=== PATIENT | male | born 1945 | race Hispanic/Latino ===

== ENCOUNTER 2018-10-28 14:34 | Inpatient (IN) | payer OTHER ==
[~2018-10-28 14:34] MED LIST: Calcium Chloride 1 GM/10 ML Abboject SYRINGE ONE; EPINEPHrine 1 MG/10 ML Abboject SYRINGE ONE
[2018-10-28 15:31] LABS: #Basophils 0.1 thou/uL (0.0-0.2); #Eosinphils 0.1 thou/uL (0.0-0.7); #Lymphocytes 1.7 thou/uL (1.20-3.40); #Monocytes 1.1 thou/uL (0.11-0.59); %Basophils 0.5 % (0.0-1.0); %Eosinophils 1.2 % (0.0-10.0); %Lymphocytes 15.6 % (21.0-51.0); %Monocytes 9.5 % (0.0-10.0); %Neutrophils 73.3 % (42.0-75.0); Hemoglobin 12.1 g/dL (14.0-18.0); Mean Corpuscular HGB CONC 32.5 g/dL (32.0-36.0); Mean Corpuscular Hemoglobin 27.6 pg (27.0-31.0); Mean Corpuscular Volume 85.1 fL (78.0-98.0); Mean Platelet Volume 8.8 fL (7.4-10.4); Platelet Count 189 thou/uL (130-400); RBC Distribution Width 13.6 % (11.5-14.5); Red Blood Cell (RBC) Count 4.37 mill/uL (4.70-6.10)
[2018-10-28 15:38] LABS: Prothrombin Time 77.4 SEC (12.0-14.7)
[2018-10-28 15:42] LABS: INR-International Normal Ratio 9.7
[2018-10-28 15:48] LABS: ALT (SGPT) 12 U/L (8-55); AST (SGOT) 22 U/L (5-34); Alkaline Phosphatase 115 U/L (40-150); Anion Gap 15 mmol/L (10-20); BUN (Urea Nitrogen) 19 mg/dL (8.4-25.7); Bilirubin, Total 0.9 mg/dL (0.2-1.2); Calc. Creatinine Clearance 0 mL/min (70-130); Calcium 8.3 mg/dL (7.8-10.44); Carbon Dioxide 22 mmol/L (23-31); Chloride 101 mmol/L (98-107); Estimated GFR-MDRD 71; Globulin 3.7 g/dL (2.4-3.5); Glucose 89 mg/dL (83-110); Potassium 4.2 mmol/L (3.5-5.1); Protein, Total 7.7 g/dL (5.8-8.1); Sodium 134 mmol/L (136-145)
[2018-10-28] MEDS ORDERED: cefTRIAXone\\ROCEPHIN 1 GM VIAL ONE (15:51)
[2018-10-28] MEDS ORDERED: Propofol 1,000 MG/100 ML VIAL IV PRN (16:40)
[2018-10-28] MEDS ORDERED: fentaNYL Citrate/PF 2,000 MCG in Sodium Chloride 0.9% 60 ML IV SCH (16:40)
[2018-10-28] MEDS ORDERED: Fentanyl BOLUS 250 ML IVPB PRN (16:40)
[2018-10-28] MEDS ORDERED: Morphine 2 MG/ML SYRINGE SLOW IVP PRN (16:40)
[2018-10-28] MEDS ORDERED: Lorazepam 2 MG/ML VIAL SLOW IVP PRN (16:40)
[2018-10-28] MEDS ORDERED: Propofol BOLUS 1,000 MG/100 ML VIAL IV PRN (16:40)
[2018-10-28] MEDS ORDERED: DISCONTINUE PREVIOUS NARCOTIC PAIN MEDICATIONS AND BENZODIAZEPINES FS SCH (16:40)
[2018-10-28 16:42] LABS: Actual Bicarbonate (HCO3a) 17.4 mEq/L (22-28); Analyzer IN Cardio ER; Base Excess (BEa) -10.7 mEq/L (-2.0 to +3.0); CO2 Tension 46.8 mmHg (35.0-45.0); Calcium, Ionized 1.12 mmol/L (1.12-1.30); Carboxyhemoglobin (COHb) 0.3 gm% (0.0-3.0); Hemoglobin (Hb) 13.7 g/dL (14.0-18.0); O2 Tension (PaO2) 67.1 mmHg (> 70.0); Potassium - ABG Lab 4.26 mmol/L (3.70-5.30)
[2018-10-28] MEDS ORDERED: Morphine 4 MG/ML VIAL SLOW IVP PRN (16:42)
[2018-10-28 16:44] LABS: Puncture Site LRA; pH, Arterial 7.19 (7.35-7.45)
[2018-10-28] MEDS ORDERED: Phytonadione 10 MG/ML AMP SLOW IVP SCH (16:45)
[2018-10-28] MEDS ORDERED: HUM PROTHROMBIN CPLX(PCC)4FACT 1,000 UNIT in Admixture Fee 1 EACH IV SCH (17:00)
[2018-10-28 17:16] LABS: Bilirubin Negative (Negative); Blood, Urine Large (Negative); Clarity CLEAR (Clear); Glucose, Urine (Dipstick) Negative (Negative); Leukocyte Negative (Negative); Nitrite Negative (Negative); Protein, Urine (Dipstick) > or equal to 300 mg/dL (Neg-Trace); Specific Gravity, Urine 1.012 (1.002-1.036)
[2018-10-28 17:18] LABS: Bacteria/HPF None Seen HPF (None Seen); Hyaline Casts/LPF 0-3 HYALINE CAST LPF (0-3 Hyaline); RBC/HPF 21-50 HPF (0-3); Squamous Epithelial None Seen HPF (0-3); WBC/HPF None Seen HPF (0-3)
--- NOTE | 2018-10-28 17:43 | RAD ---
PORTABLE CHEST: 10/28/18 HISTORY: Respiratory distress. Endotracheal and NG tubes appear to be in satisfactory position. Heart size is enlarged with postop s ternotomy changes. Pulmonary edema changes are present with increased perihilar and lung markings. IMPRESSION: 1. Cardiomegaly with some moderate pulmonary edema change. 2. Endotracheal tube in satisfactory position. NG tube is seen. The tip appears to be below the hemidiaphragm. POS: [facility]
[2018-10-28 17:51] LABS: Platelet Count 183 thou/uL (130-400)
[2018-10-28 17:57] LABS: Fibrinogen 437 mg/dL (253-463)
[2018-10-28 17:58] LABS: PTT 57.3 SEC (22.9-36.1); Prothrombin Time 61.7 SEC (12.0-14.7)
[2018-10-28 18:00] LABS: INR-International Normal Ratio 7.2
[2018-10-28 18:08] LABS: FSP-Qualitative ABNORMAL (Normal)
[2018-10-28 18:09] LABS: FSP-Semiquantitative >=40 & <80 mcg/mL (Less than 5)
[2018-10-28 18:12] LABS: D-Dimer Test 5.56 *mcg/mL (0.27-0.43)
[2018-10-28] MEDS ORDERED: Vecuronium 10 MG VIAL ONE (18:21)
[2018-10-28] MEDS ORDERED: Water For Inject, Bacteriostat 30 ML ONE (18:21)
[2018-10-28] MEDS ORDERED: Dextrose 5% in Water 1,000 ML IV PRN (18:38)
[2018-10-28] MEDS ORDERED: Dextrose 50% Abboject 50 ML SYRINGE SLOW IVP PRN (18:38)
[2018-10-28] MEDS ORDERED: HumaLOG 300 UNITS/3 ML VIAL SC PRN (18:38)
[2018-10-28] MEDS ORDERED: Propofol 1,000 MG/100 ML VIAL IV ONE (18:43)
[2018-10-28] MEDS ORDERED: Pantoprazole 40 MG VIAL IVP SCH ×2 (18:45→19:46)
[2018-10-28] MEDS ORDERED: PROTHROMBIN COMPLEX CONCENTRATE 1000 UNIT IV SCH (19:45)
[2018-10-28] MEDS ORDERED: Guaifenesin DM 100-10/5 ML UDCUP PO PRN (19:46)
[2018-10-28] MEDS ORDERED: Senokot S 8.6-50 MG TAB PO PRN (19:46)
[2018-10-28] MEDS ORDERED: Acetaminophen 325 MG TAB PO PRN (19:46)
[2018-10-28] MEDS ORDERED: Acetaminophen 650 MG Suppository PR PRN (19:46)
[2018-10-28] MEDS ORDERED: Ondansetron PF 4 MG/2 ML Vial IVP PRN (19:46)
[2018-10-28] MEDS ORDERED: Ondansetron ODT 4 MG TAB PO PRN (19:46)
--- NOTE | 2018-10-28 19:56 | HP ---
PRIMARY CARE PHYSICIAN: [facility]. The patient is an inmate from the [facility] unit. CHIEF COMPLAINT: Elevated INR and cardiac arrest. HISTORY OF PRESENT ILLNESS: This is a 73-year-old male with past medical history of atrial fibrillation, on Coumadin therapy, had an INR drawn that was 10 at present and so he was sent into the emergency room. The patient also has a history of congestive heart failure, coronary artery disease, hypertension, diabetes mellitus type 2, on insulin, and recent positive PPD. In the emergency room, the patient was without initial complaints but then stated he got some little bit shortness of breath on his trip to the emergency room and some chest tightness. After the labs were ordered, nurse came back to the room and found the patient was unconscious , was still breathing and had a pulse ox in the 90s per her report. When Dr. Norton got there, the patient became bradycardic and then became asystolic with loss of pulse. At that point, they did institute ACLS. The patient had epinephrine, calcium, fluids, and 2 units of O-negative blood. He was also intubated, did have return of spontaneous circulation with return of atrial fibrillation, which he has come in with. His blood pressure has been stable since then. He currently has been on a lot of sedation on the ventilator. A right groin central line was placed. Stanton catheter has been placed, which is draining back yaz blood. The patient also had some bleeding apparently out of his nares, but no blood back to the ET tube when it was placed. Dr. Clinton and Dr. Naranjo had been consulted from the emergency room. PAST MEDICAL HISTORY: All history taken from the chart secondary to the patient 's now unresponsive status. 1. Congestive heart failure, unknown type. 2. Atrial fibrillation, on chronic anticoagulation. 3. Diabetes mellitus type 2, insulin dependent. 4. Coronary artery disease. 5. Hypertension. 6. Diabetic neuropathy. 7. Previous urinary tract infection. 8. 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 PAST SURGICAL HISTORY: CABG. SOCIAL HISTORY: No tobacco, alcohol, or illicit drug use noted in the chart. FAMILY HISTORY: Unknown. ALLERGIES: NO KNOWN DRUG ALLERGIES. CURRENT MEDICATIONS: 1. Novolin N 20 units each morning and 10 units each night. 2. Novolin R 5 units subcutaneous twice a day along with a sliding scale. 3. Divalproex sodium 250 mg twice a day. 4. Amlodipine 10 mg daily. 5. Aspirin 81 mg daily. 6. Atorvastatin 80 mg daily each evening. 7. Carvedilol 6.25 mg twice a day. 8. Furosemide 40 mg twice a day. 9. Lisinopril 5 mg daily. 10. Omeprazole 20 mg daily. 11. Potassium chloride 10 mEq daily. 12. Presumed Coumadin, though is not listed on the medication list that I have here. REVIEW OF SYSTEMS: Unable to obtain secondary to the patient's intubated status. Per the ER report, the patient had a history of some chest pain and shortness of breath and the rest of the review of systems was negative in the emergency room. PHYSICAL EXAMINATION: VITAL SIGNS: Blood pressure 140/73, pulse 83, respirations 22, temperature 98.1 , and O2 saturation 95% on the ventilator. GENERAL: This is a well-developed, well-nourished, elderly male, who is sedated on the vent, but still a little bit agitated HEENT: The patient has vigorous response to touching his eyelids. Pupils are bilaterally equal and reactive to light. His nares have some fresh clotted blood. Oropharynx with ET tube in place, which he is chewing on occasionally. NECK: No masses or abnormalities. No thyromegaly. No evidence of trauma. HEART: Irregularly irregular rhythm. Normal rate. No murmurs, rubs, or gallops. LUNGS: Clear to auscultation bilaterally on the ventilator. No wheezes, crackles, or rhonchi. ABDOMEN: Obese, not apparently tender to palpation. No masses palpable. He does have a few small bruises on the anterior abdominal wall appearing to be from insulin injections. No hepatosplenomegaly or other masses. EXTREMITIES: The patient has bilateral lower extremity edema with chronic venous stasis changes to the skin and some bruising into the skin as well. No acute traumatic findings. He moved all extremities when agitated. SKIN: The patient has bruising and venous stasis changes to the skin of his extremities. No other rashes or lesions noted. NEUROLOGIC: The patient is currently sedated, moving all extremities. LABORATORY DATA: CBC with a white blood cell count of 11, hemoglobin 12.1, hematocrit 37.2, and platelet count 189. Coagulation profile; his initial INR was 9.7, down to 7.2 after Kcentra and vitamin K injections. Arterial blood gas on the ventilator shows a pH of 7.19, pCO2 of 46, PO2 of 67. Complete metabolic panel is notable for lactic acid initially 1.5 before the code. Sodium of 134, carbon dioxide of 22. The rest was normal. Brain natriuretic peptide was 342. Troponin was negative x1. Urinalysis showed large blood. No other infectious findings. DIAGNOSTIC DATA: Chest x-ray, I did review the initial chest x-ray, which was done after the intubation along with the radiologist's report. It shows some cardiomegaly with moderate pulmonary edema changes, and endotracheal tube in satisfactory position. Also, an NG tube appears in place. ASSESSMENT: 1. Acute cardiac arrest. The patient initially became unresponsive and bradycardic and then asystolic. Suspect there was hypoxic source to this given that after his resuscitation, he has come back with a strong heartbeat and good blood pressure. The patient is currently being admitted to the ICU, Dr. Naranjo and Dr. Clinton had been consulted. 2. Acute respiratory failure with hypoxia. The patient is currently on the ventilator and is saturating well. 3. Acute congestive heart failure. The patient has evidence on the x-ray of acute pulmonary edema and congestive changes. Also, has lower extremity edema. Uncertain what his baseline is. The patient will need an echocardiogram in the hospital and should his blood pressure remain stable and not have any evidence of bleeding, he probably will need some diuresis eventually as well. 4. Coagulopathy, likely from Coumadin, received vitamin K and Kcentra in the emergency room. We will continue to follow INRs and watch for evidence of bleeding. We will check serial hemoglobin and hematocrit overnight. 5. Traumatic Stanton. The patient is bleeding significantly and his Stanton will need urology evaluate him when he comes to and will also possibly need to lavage his bladder. 6. Diabetes mellitus type 2, insulin dependent. We will put the patient on fingerstick blood sugars q.a.c. and at bedtime and will give him moderate insulin sliding scale. We will hold off on his basal insulin for now until we get a feel for what he is at and also until he starts to take some sort of diet. 7. Coronary artery disease. 8. Hypertension. We will need to resume the patient's home antihypertensives if his blood pressure remains elevated and he has no further evidence of bleeding. 9. Gastrointestinal prophylaxis, put the patient on Protonix IV daily. CODE STATUS: The patient is a full code. Job ID: [id number] MTDD
[2018-10-28 20:03] LABS: Actual Bicarbonate (HCO3a) 19.3 mEq/L (22-28); Base Excess (BEa) -6.8 mEq/L (-2.0 to +3.0); CO2 Tension 40.3 mmHg (35.0-45.0); Calcium, Ionized 1.09 mmol/L (1.12-1.30); Carboxyhemoglobin (COHb) 0.7 gm% (0.0-3.0); Hemoglobin (Hb) 12.7 g/dL (14.0-18.0); O2 Tension (PaO2) 70.3 mmHg (> 70.0)
[2018-10-28 20:09] LABS: ALV-art Gradient 271.475 (0-20); Puncture Site RBA
[2018-10-28] MEDS ORDERED: Amiodarone HCl 150 MG in Dextrose 5% in Water 100 ML IVPB SCH (20:15)
[2018-10-28 20:21] VITALS: BMI 30.9
--- NOTE | 2018-10-28 20:22 | RAD ---
PORTABLE AP CHEST X-RAY 10/28/18 HISTORY: Post femoral central line insertion, intubation. COMPARISON: 10/28/18 at 1515 hours. FINDINGS: Endotracheal tube and nasogastric tube remain in place. Tip of the nasogastric tube overlies the elio on of the fundus of the stomach with most proximal side hole overlying the region of the GE junction and nasogastric tube should be mildly advanced. Pacing device again overlies the right chest. Median sternotomy wires are present. The cardiac silhouette within normal limits. There is increased interst itial and alveolar opacities within the lungs bilaterally, greatest in the perihilar regions and on t he right which have increased from the prior exam. Pulmonary vasculature is increased. IMPRESSION: 1. Findings likely related to worsening asymmetric pulmonary edema. 2. Lines and tubes unchanged in position. Nasogastric tube should be mildly advanced as the mos t proximal side hole overlies the GE junction. AP VIEW ABDOMEN: The pelvis is excluded from view. There is a central venous catheter overlying the right aspect of th e sacrum with tip overlying the L5-S1 level. Vascular stent overlies the region of the left common il iac artery. Vascular calcifications in the abdominal aorta and the right common iliac artery. Degener ative changes seen in the spine. Bowel gas pattern is nonspecific. Mild gaseous distention of the loo ps of bowel. Nasogastric tube is in place as described above on report of the chest x-ray with most p roximal side hole overlying the region of the GE junction. IMPRESSION: 1. Central venous catheter overlying the right aspect of the pelvis with tip overlying the right sacroiliac joint. 2. Vascular stent left common iliac artery with vascular calcifications present. 3. Nasogastric tube in place with proximal side hole overlying the GE junction. Nasogastric tube should be mildly advanced. POS: [facility]
[2018-10-28] MEDS ORDERED: Lorazepam 2 MG/ML VIAL ONE (20:47)
[2018-10-28] MEDS: Amiodarone HCl 450 MG in Dextrose 5% in Water 250 ML IVPB SCH (20:54)
[2018-10-28] MEDS ORDERED: Sodium Chloride 0.9% 1,000 ML IV SCH (21:00)
[2018-10-28] MEDS ORDERED: Norepinephrine 8 MG/0.9% NS 250 ML IVPB SCH (22:45)
[2018-10-28] MEDS: Lorazepam 2 MG/ML VIAL SLOW IVP PRN (22:55)
--- NOTE | 2018-10-28 23:04 | CON ---
DATE OF CONSULTATION: 10/28/2018 REASON FOR CONSULTATION: Cardiac arrest. HISTORY: Mr. Triana is a 73-year-old white gentleman, who is an inmate who comes in as he had an INR of 10 earlier today. He was sent over here just for the INR. While blood tests were getting drawn, he suddenly became unresponsive, became bradycardic, and eventually went into asystole. ACLS was started, chest compressions were performed, and had one dose of epinephrine. He quickly regained spontaneous circulation and was back in atrial fibrillation which he is chronically in. He was intubated at the time sedated and Cardiology has been consulted for further evaluation and care. Chest x-ray looks like bilateral pulmonary edema. PAST MEDICAL HISTORY: 1. History of CHF, unknown systolic versus diastolic. 2. Chronic atrial fibrillation, on chronic anticoagulation with Coumadin. 3. Chronic anticoagulation with Coumadin. 4. Type 2 diabetes. 5. Coronary artery disease, status post CABG. 6. Hypertension. 7. Diabetic neuropathy. 8. History of UTIs. PAST SURGICAL HISTORY: CABG. SOCIAL HISTORY: No alcohol, tobacco, or drugs per chart review. FAMILY HISTORY: Unknown. REVIEW OF SYSTEMS: Unobtainable as patient is sedated and intubated. ALLERGIES: NO KNOWN DRUG ALLERGIES. OUTPATIENT MEDICATIONS: 1. Novolin. 2. Divalproex. 3. Amlodipine 10 mg a day. 4. Aspirin 81 a day. 5. Atorvastatin 80 mg a day. 6. Carvedilol 6.25 b.i.d. 7. Furosemide 40 mg b.i.d. 8. Lisinopril 5 mg a day. 9. Omeprazole 20 mg a day. 10. Potassium chloride 10 mEq a day. 11. Coumadin. PHYSICAL EXAMINATION: VITAL SIGNS: Blood pressure 89/62, heart rate 120, respiratory rate 28 on the vent, temperature 98.8, and sat 99% on FiO2. GENERAL: Sedated and intubated. LUNGS: Have coarse breath sounds anteriorly. CARDIOVASCULAR: Tachycardic, heart rate in the 120s, regular. ABDOMEN: Soft. EXTREMITIES: 1+ edema. SKIN: Warm and dry. LABORATORY DATA: Laboratory work was reviewed. CBC with white count of 11, hemoglobin of 12, hematocrit 37, and platelet count of 189. Coags with initial INR 9.7, down to 7.2. ABG reviewed. Chemistries were reviewed, pretty much unremarkable. BNP was 342. Troponin was negative x1. UA; large amount of blood, 21 to 50 red blood cells. His chest x-rays were reviewed. ASSESSMENT AND PLAN: 1. Asystolic cardiac arrest. 2. Supratherapeutic INR. 3. Chronic anticoagulation with Coumadin. 4. Chronic atrial fibrillation. 5. Currently in atrial fibrillation with rapid ventricular response. 6. Hematuria. 7. Acute hypoxic respiratory insufficiency. PLAN: 1. We will reverse his coagulopathy with fresh frozen plasma as he continues to bleed from his bladder. He does have some clots there, so he is already starting to form clot. We would continue supportive care for now. If he were to become hypotensive, we will start Levophed for now. We will get an echocardiogram to see what his LV function is doing. 2. We will defer use of fluids, however, if he starts bleeding, I would give him fluids profusely, try to keep his blood pressure up and eventually blood products. 3. INR is already coming down. Should get much better after FFP is given. 4. Continue amiodarone drip for rate control of his atrial fibrillation, however, may be reactive to his current state. 5. We will follow. Over 45 minutes were spent at bedside for critical care on this patient. Job ID: [id number]
[2018-10-28 23:31] LABS: Medtox Reader # READER 4
[2018-10-28 23:32] LABS: Amphetamine Not Detected (NotDetected); Barbiturates Screen Not Detected (NotDetected); Benzodiazepine Screen Not Detected (NotDetected); Cocaine Metabolite Screen Not Detected (NotDetected); Medtox Control Line Valid? VALID (VALID); Methadone Not Detected (NotDetected); Methamphetamine Not Detected (NotDetected); Opiate Screen Not Detected (NotDetected); Oxycodone Screen Not Detected (NotDetected); Phencyclidine (PCP) Not Detected (NotDetected); THC/Cannabinoid Screen Not Detected (NotDetected); Tricyclic Screen Not Detected (NotDetected)
[2018-10-29] MEDS: Lorazepam 2 MG/ML VIAL SLOW IVP PRN ×6 (00:04→08:13)
[2018-10-29] MEDS ORDERED: EPINEPHrine 1 MG/ML AMP ONE (00:23)
[2018-10-29] MEDS ORDERED: EPINEPHrine 1 MG/10 ML Abboject SYRINGE ONE (00:25)
--- NOTE | 2018-10-29 00:39 | CON ---
DATE OF CONSULTATION: 10/28/2018 HISTORY OF PRESENT ILLNESS: This is a 73-year-old white male who was brought in from the ER up to the ICU, he came in apparently coding in the ER. He has history of atrial fibrillation and coronary artery disease, has been on Coumadin. His INR is greatly elevated, it was 9.7 and 7.2 now. His hemoglobin was 12.1, that was at 3:00 this afternoon. He has not had one rechecked at this point, I do not believe, although I do believe he may have received a couple units of blood downstairs, his platelet count was normal. His creatinine was normal. He has not had abdominal CT scan. On talking with his by phone one of our nurses in regards that we were able to find that he had had a TURP done 3 years ago in [place] at [facility]. He has no known history of prostate cancer. From the admitting doctor reports that he has had some urinary tract infection. His urinalysis showed just 21 to 50 red cells, no white cells when he was brought in. Talking with the nurses who had received him from the ER, they said when his catheter was first placed which I believe was a 16-Hungarian, his urine was clear, and then it became bloody. He got upstairs. The catheter was not draining. They could irrigate it. They did the bladder ultrasound. He had 800 mL in the bladder. Urology consult was called. He is currently intubated. I went ahead and removed the indwelling catheter, sterilely prepped him with Betadine, placed a 22-Hungarian three-way and placed 30 mL in the balloon. We then hand irrigated with probably 2-1/2 to 3 L of sterile water and sterile saline getting out a fair amount of clot, never could get him clear, but I think with his INR, we are unlikely to get him clear, but we removed enough clot that we could start continuous bladder irrigation and watch it for few minutes and it seems to be draining adequately, though the urine is still bloody. He has received some vitamin K and he is also now receiving some FFP. Hopefully as his coags correct, his urine will clear. At this point, there is really not any reason to consider taking him to the OR unless he does not clear or we cannot get the clots out after the coags correct. I have asked that the urine culture be set up, although it does not appear based on his initial UA here that he has a urinary tract infection. On his physical exam, his bladder was distended. After getting the clots out, it was not distended. He is not circumcised, but there is no phimosis or lesions. Testicles descended without mass or tenderness. Rectal exam was not done at this visit. We will see about the CT scan based on what happens in terms of the urine after the coags correct. Looking at him from historical standpoint, it does not appear that he has actually been in this hospital before. So, I have no other history on him related to the prior scans with things of that nature. PAST SURGICAL HISTORY: He has history of TURP and has a history of coronary artery bypass. PAST MEDICAL HISTORY: Heart failure, atrial fibrillation, diabetes, coronary artery disease, hypertension, diabetic neuropathy, and apparently had a positive tuberculin skin test, but he has not had TB. He is not currently smoking or drinking. IMPRESSION: Gross hematuria, which is probably prostatic, it is probably related to the anticoagulated state. He is having the coags corrected. We irrigated out a fair amount of clot from the bladder. We started bladder irrigation with a large caliber Stanton, which seems to be working well. The nurses can hand irrigated if it is not draining adequately and we will see what he do as his coags correct. Job ID: [id number]
[2018-10-29] MEDS: EPINEPHrine 4 MG in Dextrose 5% in Water 250 ML IV SCH ×5 (00:40→20:22)
[2018-10-29] MEDS ORDERED: Sodium Chloride 0.9% 1,000 ML IV SCH (03:15)
[2018-10-29] MEDS ORDERED: EPINEPHrine 1 MG/10 ML Abboject SYRINGE IVP SCH (03:15)
[2018-10-29 03:56] LABS: #Lymphocytes 1.1 thou/uL (1.20-3.40); %Basophils 0.1 % (0.0-1.0); %Eosinophils 0.2 % (0.0-10.0); %Lymphocytes 5.8 % (21.0-51.0); %Monocytes 10.8 % (0.0-10.0); %Neutrophils 83.1 % (42.0-75.0); Hemoglobin 9.2 g/dL (14.0-18.0); Mean Corpuscular HGB CONC 32.9 g/dL (32.0-36.0); Mean Corpuscular Hemoglobin 28.1 pg (27.0-31.0); Mean Corpuscular Volume 85.3 fL (78.0-98.0); Mean Platelet Volume 9.2 fL (7.4-10.4); Platelet Count 179 thou/uL (130-400); RBC Distribution Width 13.8 % (11.5-14.5); Red Blood Cell (RBC) Count 3.27 mill/uL (4.70-6.10)
[2018-10-29 04:01] LABS: INR-International Normal Ratio 1.4; Prothrombin Time 17.6 SEC (12.0-14.7)
[2018-10-29 04:25] LABS: Anion Gap 18 mmol/L (10-20); BUN (Urea Nitrogen) 27 mg/dL (8.4-25.7); Calc. Creatinine Clearance 52 mL/min (70-130); Calcium 7.4 mg/dL (7.8-10.44); Carbon Dioxide 20 mmol/L (23-31); Chloride 101 mmol/L (98-107); Estimated GFR-MDRD 38; Glucose 198 mg/dL (83-110); Potassium 5.1 mmol/L (3.5-5.1); Sodium 134 mmol/L (136-145)
--- NOTE | 2018-10-29 04:59 | CON ---
DATE OF CONSULTATION: 10/29/2018 HISTORY OF PRESENT ILLNESS: I was consulted to see Mr. Triana in the emergency department after a cardiac arrest. Apparently, he had presented with some hemoptysis and nonspecific complaints. He had a sudden bradycardic arrest with no pulse. He was not reportedly in respiratory distress prior to his arrest. He was resuscitated. PAST MEDICAL HISTORY: According to [facility] records includes: 1. Congestive heart failure. 2. History of coronary artery disease. 3. History of coronary artery bypass grafting. 4. History of atrial fibrillation, on Coumadin. 5. History of diabetes. 6. History of diabetic neuropathy. 7. Hypertension. SOCIAL HISTORY: He is a nonsmoker and nondrinker. ALLERGIES: HE HAS NO KNOWN DRUG ALLERGIES. MEDICATIONS: Prior to admission, he was on: 1. Depakote. 2. Novolin. 3. Amlodipine. 4. Aspirin. 5. Atorvastatin. 6. Coreg. 7. Lasix. 8. Lisinopril. 9. Omeprazole. 10. Potassium. 11. Warfarin. PHYSICAL EXAMINATION: Blood pressure in the emergency room was in the 90s, heart rate was 120, appeared to be in atrial fibrillation. He is mechanically ventilated. He was biting on the endotracheal tube. IV fluids were not running at that time, so we started some IV fluid. I recommended paralysis and sedation. He is given 2 Ativan, 10 of vecuronium and we are able to affectively ventilate him. HEENT: Pupils are sluggish. Sclerae anicteric. NECK: Without lymphadenopathy. LUNGS: Remarkable for coarse equal breath sounds. HEART: Regular rhythm. ABDOMEN: Soft and nontender. EXTREMITIES: Without asymmetry. Has stasis changes and 1+ pretibial pitting. NEURO: Could not be assessed. IMAGING DATA: Chest radiograph suggestive of pulmonary edema. He had diffuse infiltrates and probably bilateral pleural effusions, but it was an AP portable film. LABORATORY DATA: White count of 11, hemoglobin 12.1, platelets 189. His INR was 9.7 at 15:16. It was repeated at 17:38, it was still 7.2. Apparently, he did not get the Kcentra because I was told he was scheduled to get in the emergency department until he arrived in the ICU. Sodium 134, potassium 4.2, chloride 101, bicarb 22, BUN 19, creatinine 1.02. PH when he arrived in the ICU 7.3, CO2 40, PO2 70 after we made some ventilator changes in the emergency department. I was seeing another patient this evening, and he started become hypotensive. He dropped his pressure into the 40s, which I suspect is what he did in the emergency department prior to his arrest. We started him on epinephrine drip, which has stabilized that issue at this point in time. Stat echocardiogram was done. I was told his echo looked bad, but not told of any effusion or tamponade. IMPRESSION: 1. Status post cardiac arrest in the emergency department. 2. Over anticoagulation. PLAN: Once we are sure he is hemodynamically stable, we will take him down for a CT of his head to rule out a bleed and a noncontrast CT of his chest to see how much of his radiographic abnormalities are related to effusions and how much are actually pulmonary infiltrates. Critical care time being seen him last night and early this morning total of 50 minutes. Job ID: [id number] MTDD
[2018-10-29] MEDS: Amiodarone HCl 450 MG in Dextrose 5% in Water 250 ML IVPB SCH ×2 (05:07→20:23)
[2018-10-29 06:53] LABS: Actual Bicarbonate (HCO3a) 14.8 mEq/L (22-28); Base Excess (BEa) -14.3 mEq/L (-2.0 to +3.0); Calcium, Ionized 1.12 mmol/L (1.12-1.30); Carboxyhemoglobin (COHb) 0.8 gm% (0.0-3.0); Hemoglobin (Hb) 10.5 g/dL (14.0-18.0); Potassium - ABG Lab 5.31 mmol/L (3.70-5.30)
[2018-10-29 06:55] LABS: pH, Arterial 7.11 (7.35-7.45)
[2018-10-29 06:56] LABS: O2 Tension (PaO2) 55.2 mmHg (> 70.0); Puncture Site LRA
[2018-10-29] MEDS ORDERED: Pantoprazole 40 MG VIAL IVP SCH ×2 (09:00)
--- NOTE | 2018-10-29 09:07 | RAD ---
PORTABLE CHEST: Date: 10/28/18 Time: 1517 hours HISTORY: ccu follow up Comparison made to the exam at 1505 hours. FINDINGS/IMPRESSION: ET tube has been removed. The cardiomegaly and vascular congestion remains. Bilateral effusions. Left basilar atelectasis and/or infiltrate is more prominent. POS: [facility]
[2018-10-29] MEDS ORDERED: Insulin Regular 300 UNITS/3 ML VIAL IVP SCH (09:45)
[2018-10-29] MEDS ORDERED: Vecuronium Bromide 20 MG VIAL IV PRN (09:52)
[2018-10-29] MEDS ORDERED: Vecuronium 10 MG VIAL ONE (09:52)
--- NOTE | 2018-10-29 09:57 | PDOC.PN ---
- Subjective Encounter Start Date: 10/29/18 Encounter Start Time: 11:40 Subjective: Patient with agitation, seizure activity, desating on vent this -: AM, better after paralysis and seizure meds. EEG and CT brain -: planned for today. - Objective Resuscitation Status - Order Detail: 10/28/18 18:19 Resuscitation Status Routine Resuscitation Status: FULL: Full Resuscitation MAR Reviewed: Yes Vital Signs & Weight: Vital Signs (12 hours) Temp Pulse Resp BP 10/29/18 08:00 102.4 F H 30 H 10/29/18 06:36 112 H 103/36 L 10/29/18 06:00 22 H 10/29/18 05:00 98.8 F 10/29/18 04:00 100.8 F H 26 H 10/29/18 02:00 24 H 10/29/18 01:16 98.6 F 10/29/18 00:56 98.8 F 10/29/18 00:33 98.8 F 10/29/18 00:17 98.1 F 10/28/18 23:56 98.0 F Weight Weight 221 lb 9.033 oz Most Recent Monitor Data Heart Rate from ECG 105 NIBP 113/49 NIBP BP-Mean 70 Respiration from ECG 32 SpO2 99 I&O: 10/28/18 10/29/18 10/30/18 06:59 06:59 06:59 Intake Total 1982 50 Output Total 415 Balance 1567 50 Result Diagrams: 10/29/18 09:25 10/29/18 03:10 Phys Exam - Physical Examination paralyzed, sedated on vent HEENT: moist MMs ET tube in place, no active bleeding from nostrils Respiratory: no wheezing, no rales, no rhonchi Cardiovascular: irregular tachycardic Gastrointestinal: soft decreased bowel sounds Musculoskeletal: edema present Deviation from normal: sedated, unresponsive on the vent Dx/Plan (1) Cardiac arrest due to other underlying condition Code(s): I46.8 - CARDIAC ARREST DUE TO OTHER UNDERLYING CONDITION Status: Acute Comment: ROSC in ER after 1 Epi and chest compressions (2) Acute respiratory failure with hypoxia Code(s): J96.01 - ACUTE RESPIRATORY FAILURE WITH HYPOXIA Status: Acute Comment: on the ventilator, CXR with pulmonary edema (3) Acute on chronic systolic (congestive) heart failure Code(s): I50.23 - ACUTE ON CHRONIC SYSTOLIC (CONGESTIVE) HEART FAILURE Status : Acute Comment: EF 35-40% (4) Chronic atrial fibrillation Code(s): I48.2 - CHRONIC ATRIAL FIBRILLATION Status: Chronic (5) Coagulopathy Status: Resolved Comment: supratherapeutic INR, now resolved with FFP (6) Hematuria Code(s): R31.9 - HEMATURIA, UNSPECIFIED Status: Acute Comment: seen by Dr. Rodriguez, bladder lavaged (7) Diabetes mellitus type 2, insulin dependent Code(s): E11.9 - TYPE 2 DIABETES MELLITUS WITHOUT COMPLICATIONS; Z79.4 - PRODUCT INFO SPECIALIST (CURRENT) USE OF INSULIN Status: Chronic (8) CAD (coronary artery disease) Code(s): I25.10 - ATHSCL HEART DISEASE OF [place] CORONARY ARTERY W/O ANG PCTRS Status: Chronic (9) HTN (hypertension) Code(s): I10 - ESSENTIAL (PRIMARY) HYPERTENSION Status: Chronic Qualifiers: Hypertension type: essential hypertension Qualified Code(s): I10 - Essential (primary) hypertension (10) Diabetic neuropathy Code(s): E11.40 - TYPE 2 DIABETES MELLITUS WITH DIABETIC NEUROPATHY, UNSP Status: Chronic (11) Seizure Code(s): R56.9 - UNSPECIFIED CONVULSIONS Status: Acute Comment: getting fosphenytoin - Plan cont current plan of care, nunez catheter, respiratory therapy CT scan this AM * . - Discharge Day Encounter end time: 11:55
[2018-10-29] MEDS ORDERED: Vecuronium 10 MG VIAL IV PRN (10:01)
[2018-10-29] MEDS: HumaLOG 300 UNITS/3 ML VIAL SC PRN ×2 (11:21→16:43)
--- NOTE | 2018-10-29 11:45 | PDOC.CTH ---
Cardiology Progress Note - Subjective Remains sedated and intubated. He has been having more myoclonic jerking suggestive of status versus anoxic brain injury. - Objective Vital Signs Temp Pulse Resp BP Pulse Ox 10/29/18 10:49 110 H 110/48 L 10/29/18 10:00 28 H 10/29/18 09:00 99.7 F H 10/29/18 08:00 102.4 F H 30 H 98 10/29/18 06:36 112 H 103/36 L 10/29/18 06:00 22 H 10/29/18 05:00 98.8 F 10/29/18 04:00 100.8 F H 26 H 10/29/18 02:00 24 H 10/29/18 01:16 98.6 F 10/29/18 00:56 98.8 F 10/29/18 00:33 98.8 F 10/29/18 00:17 98.1 F 10/28/18 23:56 98.0 F Weight 221 lb 9.033 oz 10/28/18 10/29/18 10/30/18 06:59 06:59 06:59 Intake Total 1982 50 Output Total 415 Balance 1567 50 - Physical Examination General/Neuro: other: (Sedated intubated. ) Neck: no JVD present Lungs: CTA Heart: other: (Irreg irreg. HR 120's .) Abdomen: soft Extremities: other: (no edema.) - Telemetry Telemetry Rhythm: Afib HR 120's. - Labs Result Diagrams: 10/29/18 09:25 10/29/18 03:10 Troponin/CKMB Troponin I 0.011 ng/mL (< 0.028) 10/28/18 15:16 - Assessment/Plan 1. Supratherapeutic INR, resolved. INR 1.7 now. 2. S/P Asystolic cardiac arrest 3. Myoclonic jerking, concern for brain bleed causing seizures versus severe anoxic brain injury. 4. Chronic afib, now in RVR 5. Hematuria. 6. Acute blood loss anemia. 7. Ischemic CM EF at 35-40% 8. Cardiogenic shock PLAN: - Poor prognosis. - CT head/chest/abd/pelvis planned. - Continue pressor support. - Permissive tachycardia for now as he may need this HR. - Severely ill and would not be unexpected. - Continue to hold all anticoagulants and anti platelets. - 30 minutes critical care time.
[2018-10-29] MEDS: Vecuronium 10 MG VIAL IV PRN ×3 (11:49→19:13)
--- NOTE | 2018-10-29 13:27 | PRG ---
DATE OF SERVICE: 10/29/2018 SUBJECTIVE: Storm Triana continues to have myoclonic jerking and may have had 1 episode of generalized seizure this morning, for which Dilantin was given. OBJECTIVE: VITAL SIGNS: His hemodynamics remarkable for a blood pressure 115/60, heart rate of 109, respiratory rate is 28. He is afebrile. LUNGS: Marked for distant breath sounds. HEART: Regular rhythm. ABDOMEN: Soft. LABORATORY DATA: White count 18, hemoglobin 9.2, platelets 179,000. Sodium 134, potassium 5.1, chloride 101, bicarb 20, BUN 27, creatinine 1.7. PH 7.11, CO2 48, PO2 55. IMPRESSION: 1. Respiratory failure after cardiac arrest. 2. Hypoperfusion brain injury, most likely an EEG has been ordered. 3. Diabetes. 4. History of hypertension. 5. History of chronic cardiomyopathy with history of coronary artery bypass grafting in the past. 6. Pulmonary edema. 7. Probable obesity hypoventilation, it is undiagnosed. 8. Atrial fibrillation, that is chronic. 9. Status post supratherapeutic INR. He remained stable throughout the morning. We will consider a head CT to rule out spontaneous bleed when his INR was over 9. 10. Also if CT of his abdomen and pelvis at the request Urology since he is having gross hematuria, I do not anticipate that he will survive this. CRITICAL CARE TIME: 30 minutes. Job ID: [id number]
--- NOTE | 2018-10-29 15:25 | CT ---
CT BRAIN WITHOUT CONTRAST: HISTORY: Seizures. Respiratory failure. FINDINGS: No evidence of infarct, hemorrhage, midline shift, or abnormal extraaxial fluid collections is seen. The ventricular size is appropriate, and the basilar cisterns are patent. The bony calvarium is int act. There is mucosal disease in the paranasal sinuses. IMPRESSION: No CT evidence of acute intracranial process. POS: [facility]
--- NOTE | 2018-10-29 15:32 | CT ---
CT CHEST, ABDOMEN AND PELVIS WITHOUT IV CONTRAST: Technique: Multiple contiguous axial images were obtained through the chest, abdomen, and pelvis with out IV enhancement. Indications: CCU patient with epistasis. Access for internal bleeding. FINDINGS: CT CHEST: Moderate sized bilateral pleural effusions. Dense bilateral lung atelectasis/consolidation. Cardiomeg mk and vascular congestion. IMPRESSION: Bilateral effusions and dense bibasilar atelectasis/consolidation. CT ABDOMEN AND PELVIS: Liver, spleen, and pancreas unremarkable. There is ventilation of the common bile duct and there appe ar to be numerous calcifications within the common bile duct seen down to the pancreatic head. No sig nificant intrahepatic ductal dilatation is apparent. Adrenal glands normal. Kidneys unremarkable. No hydronephrosis. Small bowel loops appear normal. Colon unremarkable. The urinary bladder is mildly distended. There is a Stanton catheter in place. There is abnormal density within the urinary bladder surrounding the Stanton catheter bulb. Hemorrhage is a consideration. Mucosal mass lesion cannot be excluded on this single examination. No free fluid abuts the abdomen or pelvis. The aorta shows atherosclerotic change but is normal calib er. IMPRESSION: 1. Gallbladder appears contracted with probable gallstones present. The common duct is dilated and th ere is evidence of multiple stones within the common duct to the level of the pancreatic head. No sig nificant intrahepatic ductal dilatation is apparent. 2. Urinary bladder is abnormal. There is abnormal density within the bladder surrounding the catheter bulb which is most suggestive of hemorrhage. POS: [facility]
[2018-10-29] MEDS ORDERED: Propofol 1,000 MG/100 ML VIAL IV ONE (16:28)
[2018-10-29] MEDS ORDERED: Propofol 1,000 MG/100 ML VIAL IV PRN (16:41)
[2018-10-29] MEDS ORDERED: levETIRAcetam 100 MG in Sodium Chloride 0.9% 100 ML IVPB SCH (16:45)
--- NOTE | 2018-10-29 17:42 | PDOC.EVN ---
Event Note - Event Note Event Note: Patient with status epilepticus on EEG done earlier today. CT head negative. Loaded with Keppra, Cerebyx, and on Propofol but still with some myotonic activity requiring occ Vecuronium. Dr. Clinton requesting repeat EEG in the AM, but we do not have technical services librarian or neuro to read starting tomorrow. As a result emergency transfer to [facility] initiated. I spoke with Dr. Shahid critical care doctor at [facility] and he accepted transfer for tonight.
[2018-10-29 19:17] VITALS: BP 127/90
[2018-10-29 19:38] VITALS: TEMP 98.4
[2018-10-29] MEDS ORDERED: levETIRAcetam 500 MG in Sodium Chloride 0.9% 100 ML IVPB SCH (21:00)
--- NOTE | 2018-10-30 15:15 | DIS ---
DATE OF ADMISSION: 10/28/2018 DATE OF DISCHARGE: 10/29/2018 PRIMARY CARE PHYSICIAN: The patient is an inmate at the [facility]. REASON FOR ADMISSION: Cardiac arrest. DIAGNOSES AT DISCHARGE: 1. Status epilepticus requiring multiple seizure medications and paralytics. 2. Cardiac arrest with return of spontaneous circulation. 3. Acute respiratory failure with hypoxia, on the ventilator. 4. Acute on chronic congestive heart failure. 5. Chronic atrial fibrillation, on chronic anticoagulation. 6. Supratherapeutic INR, status post reversal. 7. Hematuria. 8. Diabetes mellitus type 2, insulin dependent. 9. Coronary artery disease. 10. Hypertension. 11. Diabetic neuropathy. 12. 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 PROCEDURES: 1. ACLS with return of spontaneous circulation. 2. Intubation and ventilation. 3. CT of the chest, abdomen, and pelvis without IV contrast showing a contracted gallbladder with gallstones present, common duct dilatation, multiple gallstones within the common bile duct at the level of pancreatic head and hemorrhage within the urinary bladder. 4. CT of the brain without contrast showing no evidence for acute intracranial process. 5. Echocardiogram showing ejection fraction of 35% to 40%, atrial fibrillation, dilated left ventricle. 6. EEG showing status epilepticus. CONSULTATIONS: 1. Cardiology, Dr. Naranjo. 2. Urology, Dr. Rodriguez. 3. Pulmonology, Dr. Clinton. SUMMARY OF HOSPITAL COURSE: This is a 73-year-old man inmate at the [facility], who has a history of atrial fibrillation, on Coumadin therapy, get INR checked at skilled nursing and had an INR elevated at 10, so he was sent to the emergency room. He did not have any evidence of bleeding at that time. However, on the way to the emergency room, he had a little bit shortness of breath and chest tightness. When he got to the emergency room, he was relatively asymptomatic after blood draws and interview with the emergency room physician. He became unresponsive when he was seemed to be mechelle down and eventually became asystolic, code was called. ACLS was performed. He got calcium, a dose of epinephrine, and chest compressions with return of spontaneous circulation. He was intubated. Central line was placed. The patient had reversal of his INR done and he was transferred to the ICU. In the ICU, the patient was noted to be very agitated and had myoclonic jerking. He was given Cerebyx. However, his agitation worsened. In spite of heavy sedation, he started biting down the tube and was not ventilating or oxygenating well. Also he had paralytics given. EEG was done which showed persistent status epilepticus. The patient was also loaded with Keppra and given propofol. In spite of these, he still had intermittent myoclonic jerking requiring occasional paralytic medications. At this point, CT of the head and the body were done with the above results. The patient was going to need another EEG the next day; however, we have no EEG here, I believe starting Friday or over the weekend. For this reason, the patient was transferred to [facility]. The patient also had hematuria. After placement of a Stanton, Dr. Rodriguez was consulted. He did irrigation of the bladder and placed a larger Stanton. The patient's vital signs were relatively stable. He was oxygenating well with paralytics on board. However, he is still critically ill ane he has a poor prognosis. He was transferred by ambulance to [facility]. Job ID: [id number]
--- NOTE | 2018-10-31 15:38 | EKG ---
Test Reason : Blood Pressure : / mmHG Vent. Rate : 106 BPM Atrial Rate : 127 BPM P-R Int : 000 ms QRS Dur : 086 ms QT Int : 318 ms P-R-T Axes : 000 005 209 degrees QTc Int : 422 ms Atrial fibrillation with rapid ventricular response with premature ventricular or aberrantly conducte d complexes Low voltage QRS Septal infarct , age undetermined Abnormal ECG Confirmed by MICHELLE SALVADOR M.D. ([id number]), international editorial producer TERESA HE ([id number]) on 10/31/2018 3:38:27 PM Referred By: Confirmed By:MICHELLE SALVADOR M.D.
--- NOTE | 2018-10-31 15:38 | EKG ---
Test Reason : Blood Pressure : / mmHG Vent. Rate : 132 BPM Atrial Rate : 080 BPM P-R Int : 000 ms QRS Dur : 072 ms QT Int : 306 ms P-R-T Axes : 000 002 190 degrees QTc Int : 453 ms No rhythm assessment Septal infarct , age undetermined Abnormal ECG No ST elevation/SC Confirmed by MADELEINE Butterfield, MICHELLE ([id number]), slot editor TERESA HE ([id number]) on 10/31/2018 3:38:21 PM Referred By: Confirmed By:MICHELLE SALVADOR M.D.
== END 2018-10-29 20:55 | disposition short-term general hospital (02) | DRG 189 ==
LOC: ERS 14:34 → CCU 19:06
PROVIDERS: ADMIT Emergency Medicine; ATTEND Emergency Medicine
PROC: 0BH17EZ Insertion of Endotracheal Airway into Trachea, Via Natural or Artificial Opening (ICD-10-PCS; principal; 2018-10-28)
PROC: 5A12012 Performance of Cardiac Output, Single, Manual (ICD-10-PCS; 2018-10-28)
DX: J96.01 Acute respiratory failure with hypoxia (principal); I46.8 Cardiac arrest due to other underlying condition; I50.23 Acute on chronic systolic (congestive) heart failure; D62 Acute posthemorrhagic anemia; I25.10 Atherosclerotic heart disease of native coronary artery without angina pectoris; E11.40 Type 2 diabetes mellitus with diabetic neuropathy, unspecified; I48.2 Chronic atrial fibrillation; R79.1 Abnormal coagulation profile; R31.9 Hematuria, unspecified; R56.9 Unspecified convulsions; I25.5 Ischemic cardiomyopathy; S06.890A Other specified intracranial injury without loss of consciousness, initial encounter; I11.0 Hypertensive heart disease with heart failure; Z95.1 Presence of aortocoronary bypass graft; Z79.4 Long term (current) use of insulin; Z79.82 Long term (current) use of aspirin; Z87.440 Personal history of urinary (tract) infections; Z79.01 Long term (current) use of anticoagulants; X58.XXXA Exposure to other specified factors, initial encounter
CPT/HCPCS: 36415; 36416; 36430; 70450; 71045; 71250; 74177; 80048; 80053; 80306; 81003; 81015; 82805; 83605; 83880; 84484; 85025; 85049; 85300; 85362; 85379; 85384; 85610; 85730; 86850; 86900; 86901; 87040; 87086; 87149; 93005; 93306; 94002; 94003; 95816; 95819; C9113; C9132; J0171; J0282; J0696; J1953; J2060; J2704; J3010; J3430; J7050; J7070; P9016; P9059; Q2009